=== PATIENT | female | born 1950 | race Caucasian/White ===

== ENCOUNTER → 2020-05-31 | Outpatient (CLI) | payer MEDICARE ==
[~2020-05-31] MED LIST: CALC200T3 PO; CETI1TAB6 PO; CHOL2000 PO; COLE625T12 PO; FLUO10TA PO; HYDR-3245 PO; IBUP1CAP2 PO; POLY17PO5 PO; ROPI0.25 PO; TIZA-106 PO; vitamin b12 IM
== END | disposition home or self-care (01) ==
LOC: MERGE 13:30 → UNMERGE 13:30 → STAR 13:30
PROVIDERS: ATTEND Obstetrics & Gynecology Female Pelvic Medicine and Reconstructive Surgery
DX: Z01.818 Encounter for other preprocedural examination (principal); N81.6 Rectocele; N81.10 Cystocele, unspecified; K46.9 Unspecified abdominal hernia without obstruction or gangrene; R94.31 Abnormal electrocardiogram [ECG] [EKG]; Z20.822 Contact with and (suspected) exposure to COVID-19
CPT/HCPCS: 87635; 93005

== ENCOUNTER 2020-06-05 08:04 | Day surgery (SDC) | payer MEDICARE ==
[~2020-06-05] VITALS: Ht 170.2 cm; Wt 78.9 kg
[~2020-06-05 08:04] MED LIST changes: +BUPIVACAINE/PF 0.25% ONE; +EPINEPHRINE 1 MG/ML, 1ML ONE; +INDIGO CARMINE 0.8%, 5ML ONE
[2020-06-05] MEDS ORDERED: MIDAZOLAM 1 MG/ML, 2ML ONE (08:15)
[2020-06-05] MEDS ORDERED: FENTANYL PF 250 MCG/5ML ONE ×2 (08:15→10:54)
[2020-06-05] MEDS ORDERED: GLYCOPYRROLATE 0.2MG/1ML, 5ML ONE (08:17)
[2020-06-05] MEDS ORDERED: ROCURONIUM 10MG/ML,5ML ONE (08:17)
[2020-06-05] MEDS ORDERED: PROPOFOL 10 MG/ML, 20ML ONE (08:17)
[2020-06-05] MEDS ORDERED: NEOSTIGMINE 1 MG/ML, 10ML ONE (08:17)
[2020-06-05] MEDS ORDERED: CEFAZOLIN 1,000 MG ONE (08:17)
[2020-06-05] MEDS ORDERED: ONDANSETRON 2MG/ML, 2ML ONE (08:17)
[2020-06-05 08:40] VITALS: BP 137/85
[2020-06-05] MEDS ORDERED: CITA40TA12 PO (08:48)
[2020-06-05] MEDS ORDERED: TRAZ50TA66 PO (08:48)
[2020-06-05] MEDS ORDERED: [UNRECOGNIZED DRUG - CODE] PO (08:48)
[2020-06-05] MEDS ORDERED: LACTATED RINGERS 1,000 ML IV SCH ×2 (09:00→12:30)
[2020-06-05] MEDS ORDERED: NEOMY/POLYMYXIN B GU IRR. 1 ML ONE (09:54)
[2020-06-05] MEDS ORDERED: DEXAMETHASONE 4 MG/ML, 5ML ONE (10:18)
[2020-06-05] MEDS ORDERED: CEFOTETAN 2 GM ONE (10:18)
[2020-06-05] MEDS ORDERED: PROMETHAZINE 25 MG/ML, 1ML IVPush PRN (10:30)
[2020-06-05] MEDS ORDERED: morphine SULFATE 10 MG/ML, 1ML IVPush PRN (10:30)
[2020-06-05] MEDS ORDERED: HYDROmorphone 1 MG/ML, 1ML INJ IVPush PRN (10:30)
[2020-06-05] MEDS ORDERED: hydrALAzine 20 MG/ML, 1ML IV PRN (10:30)
[2020-06-05] MEDS ORDERED: MEPERIDINE/PF 25MG/0.5ML IVPush PRN (10:30)
[2020-06-05] MEDS ORDERED: HALOPERIDOL 5 MG/ML IV PRN (10:30)
[2020-06-05] MEDS ORDERED: LABETALOL 5MG/ML, 20ML IV PRN (10:30)
[2020-06-05] MEDS ORDERED: ACETAMINOPHEN 325 MG TABLET PO PRN (10:30)
[2020-06-05] MEDS ORDERED: OXYcodone 5 MG/5 ML ORAL.SOL UDC PO PRN ×2 (10:30→12:30)
[2020-06-05] MEDS ORDERED: BUPIVACAINE/PF-EPI 0.25% 1:200K INFIL ONE (10:46)
[2020-06-05] MEDS ORDERED: NEOMY/POLYMYXIN B GU IRR. 1 ML IRRIG ONE (10:46)
[2020-06-05] MEDS ORDERED: FENTANYL PF 100 MCG/2ML ONE ×3 (11:28→13:21)
[2020-06-05] MEDS ORDERED: KETOROLAC 30 MG/1 ML ONE (12:09)
[2020-06-05] MEDS ORDERED: FUROSEMIDE 20 MG/2 ML ONE (12:16)
[2020-06-05] MEDS ORDERED: IBUPROFEN 600 MG TABLET PO PRN (12:30)
[2020-06-05] MEDS ORDERED: OXYcodone/APAP 5/325MG TABLET PO PRN (12:30)
[2020-06-05] MEDS ORDERED: PROMETHAZINE 25 MG SUPP PR ONE (12:30)
[2020-06-05] MEDS ORDERED: OXYcodone 5 MG/5 ML ORAL.SOL UDC ONE (13:22)
[2020-06-05] MEDS: FENTANYL PF 100 MCG/2ML IV PRN ×2 (13:25→13:38)
== END 2020-06-05 17:45 | disposition home or self-care (01) ==
LOC: OUT 08:04
PROVIDERS: ATTEND Obstetrics & Gynecology Female Pelvic Medicine and Reconstructive Surgery
DX: N81.10 Cystocele, unspecified (principal); N81.6 Rectocele; K57.30 Diverticulosis of large intestine without perforation or abscess without bleeding; R35.0 Frequency of micturition; M19.90 Unspecified osteoarthritis, unspecified site; F32.9 Major depressive disorder, single episode, unspecified; F41.9 Anxiety disorder, unspecified; Z88.1 Allergy status to other antibiotic agents; Z88.8 Allergy status to other drugs, medicaments and biological substances; Z85.3 Personal history of malignant neoplasm of breast; Z90.49 Acquired absence of other specified parts of digestive tract; Z90.710 Acquired absence of both cervix and uterus; Z98.890 Other specified postprocedural states; Z98.84 Bariatric surgery status; Z79.899 Other long term (current) drug therapy; Z80.0 Family history of malignant neoplasm of digestive organs; Z72.89 Other problems related to lifestyle
CPT/HCPCS: 57425; C1781; J0171; J1100; J1885; J1940; J2250; J2405; J2704; J2710; J3010; J7120; J0690